=== PATIENT | male | born 1990 | race African-American/Black ===

== ENCOUNTER 2017-09-29 03:38 | Emergency (ER) | payer SELFPAY ==
[~2017-09-29] VITALS: Ht 182.9 cm; Wt 75.0 kg
[2017-09-29 03:41] VITALS: BP 141/89; PULSE 74; RESP 18; TEMP 98.3; O2SAT 100
[2017-09-29] MEDS ORDERED: BACT800T5 PO (05:03)
[2017-09-29] MEDS ORDERED: MEDR4PAK PO (05:03)
[2017-09-29] MEDS ORDERED: FAMO1TAB73 PO (05:03)
[2017-09-29] MEDS ORDERED: CLAR10CA3 PO (05:03)
--- NOTE | 2017-09-29 05:03 | PD ---
HPI Chief Complaint: Edema Time Seen by Provider: 04:57 Travel History International Travel<30 days: No Contact w/Intl Traveler<30days: No Traveled to known affect area: No History of Present Illness HPI About 2 days ago the patient started to notice a small blister that formed on the outside of his bottom lip. Over the following 2 days the swelling increased despite him using antibiotic ointment locally and which maricarmen solution. The swelling continued to increase and increase and finally today he comes in with his bottom lip being almost twice the size of his top lip. Patient denies any shortness of breath. No alleviating or aggravating factors. Patient denies any associated factors such as fever, rash, itching, shortness of breath, stridor or wheezing sounds, chest pain/back pain/neck pain/abdominal pain, cough, throat tightness or nausea vomiting or diarrhea. No known drug allergy Patient denies any significant past medical or surgical history PFSH Past Medical History Medical History: Denies Significant Hx Diminished Hearing: No Tetanus Vaccination: Unknown Influenza Vaccination: No Past Surgical History Surgical History: No Previous Surgery Social History Alcohol Use: No Tobacco Use: No Substance Use: No Allergies-Medications (Allergen,Severity, Reaction): Coded Allergies: No Known Allergies (Unverified Adverse Reaction, Unknown, 10/02/17) Reported Meds & Prescriptions Reported Meds & Active Scripts Active Cleocin (Clindamycin HCl) 150 Mg Cap 300 Mg PO Q6HR Review of Systems General / Constitutional: No: Fever Eyes: No: Visual changes HENT: Positive: Other Cardiovascular: No: Chest Pain or Discomfort Respiratory: No: Shortness of Breath Gastrointestinal: No: Abdominal Pain Genitourinary: No: Dysuria Musculoskeletal: No: Pain Skin: No Rash Neurologic: No: Weakness Psychiatric: No: Depression Endocrine: No: Polydipsia Hematologic/Lymphatic: No: Easy Bruising Physical Exam Narrative GENERAL: SKIN: Warm and dry. HEAD: Atraumatic. Normocephalic. EYES: Pupils equal and round. No scleral icterus. No injection or drainage. ENT: No nasal bleeding or discharge. Mucous membranes pink and moist. No stridor no uvular edema... Inferior lip is edematous and twice the size of the superior lip. No tongue or uvular edema. There is a small punctate lesion that appears to be draining right at the middle of the lip fold, no streaking, NECK: Trachea midline. No JVD. CARDIOVASCULAR: Regular rate and rhythm. RESPIRATORY: No accessory muscle use. Clear to auscultation. Breath sounds equal bilaterally. No wheezing GASTROINTESTINAL: Abdomen soft, non-tender, nondistended. Hepatic and splenic margins not palpable. MUSCULOSKELETAL: Extremities without clubbing, cyanosis, or edema. No obvious deformities. NEUROLOGICAL: Awake and alert. No obvious cranial nerve deficits. Motor grossly within normal limits. Five out of 5 muscle strength in the arms and legs. Normal speech. PSYCHIATRIC: Appropriate mood and affect; insight and judgment normal. Data Data Last Documented VS Orders Orders Iv Access Insert/Monitor (09/29/17 05:05) Diphenhydramine Inj (Benadryl Inj) (09/29/17 05:15) Methylprednisolone So Succ Inj (Solumedr (09/29/17 05:15) Famotidine Inj (Pepcid Inj) (09/29/17 05:15) Sodium Chloride 0.9% Flush (Ns Flush) (09/29/17 05:15) Epinephrine (1:1000) Inj (Adrenalin (1:1 (09/29/17 05:15) Sulfamet-Trimeth Ds 800-160 Mg (Bactrim (09/29/17 05:15) Ed Discharge Order (09/29/17 06:16) MDM Medical Decision Making Medical Screen Exam Complete: Yes Emergency Medical Condition: Yes Medical Record Reviewed: Yes Differential Diagnosis Abscess versus cellulitis versus angioedema versus lymphangitis Narrative Course clinically there aare angioedema changes present, however there is also an associated cellulitc component outside of the lizet border on inferior lip with a small pustule c/w infected insect bite....will tx with antibiotics in addition to angioedema Diagnosis Primary Impression: Angioedema of the inferior lip Additional Impression: Cellulitis of inferior lip Patient Instructions: Angioedema (GEN), Cellulitis (ED), General Instructions Disposition: 01 DISCHARGE HOME Condition: Stable Javid Pérez MD September 29, 2017 05:03
[2017-09-29] MEDS ORDERED: SULFAMETHOXAZOLE-TRIMETHOPRIM DS 800-160 MG TAB PO ONE (05:15)
[2017-09-29] MEDS ORDERED: SODIUM CHLORIDE 0.9% FLUSH 10 ML FLUSH IV FLUSH PRN (05:15)
[2017-09-29] MEDS ORDERED: EPINEPHrine HCL (1:1000) 1 MG/ML VIAL IM ONE (05:15)
[2017-09-29] MEDS ORDERED: FAMOTIDINE 20 MG/2 ML VIAL IV PUSH ONE (05:15)
[2017-09-29] MEDS ORDERED: diphenhydrAMINE HCL 50 MG/ML VIAL IVP ONE (05:15)
[2017-09-29] MEDS ORDERED: methylPREDNISolone SOD SUCC 125 MG/2 ML VIAL IV PUSH ONE (05:15)
[2017-09-29 05:42] VITALS: BP 126/77; PULSE 88
== END 2017-09-29 06:26 | disposition home or self-care (01) ==
LOC: NEPE 03:38
DX: T78.3XXA Angioneurotic edema, initial encounter (principal)
CPT/HCPCS: 96372; 96374; 96375; 99284; J0171; J1200; J2930

== ENCOUNTER 2017-09-30 08:56 | Emergency (ER) | payer SELFPAY ==
[~2017-09-30] VITALS: Ht 182.9 cm; Wt 75.0 kg
[~2017-09-30 08:56] MED LIST: BACT800T5 PO; CLAR10CA3 PO; FAMO1TAB73 PO; MEDR4PAK PO
[2017-09-30 09:03] VITALS: BP 151/77; PULSE 83; RESP 16; TEMP 97.6; O2SAT 99
--- NOTE | 2017-09-30 10:12 | PD ---
HPI Chief Complaint: Facial Pain or Swelling Time Seen by Provider: 10:02 Travel History International Travel<30 days: No Contact w/Intl Traveler<30days: No Traveled to known affect area: No History of Present Illness HPI Patient 27-year-old male presents emergency department with continued swelling of his lower lip, he is actually seen here yesterday for the same. The patient states his been taking all the medications he was prescribed Claritin, Pepcid, Medrol Dosepak and Bactrim. He states he thinks he was bit by something a few days ago which led to the symptoms. States never had in the past. He states it might be slightly worse than it was initially. Denies any fevers denies any discharge denies any difficulty swallowing denies any difficulty breathing peer PFS Past Medical History Medical History: Denies Significant Hx Diminished Hearing: No Past Surgical History Surgical History: No Previous Surgery Social History Alcohol Use: Yes (occ.) Tobacco Use: Yes (black and mild,. occ) Substance Use: No Allergies-Medications (Allergen,Severity, Reaction): Coded Allergies: No Known Allergies (Unverified Adverse Reaction, Unknown, 10/02/17) Reported Meds & Prescriptions Reported Meds & Active Scripts Active Claritin (Loratadine) 10 Mg Cap 10 Mg PO DAILY 10 Days Pepcid (Famotidine) 40 Mg Tab 40 Mg PO DAILY Medrol Dosepak (Methylprednisolone) 4 Mg Dspk 4 Mg PO DIRECTED Per Pharmacist direction Bactrim DS (Sulfamethoxazole-Trimethoprim) 800-160 Mg Tab 1 Tab PO BID Review of Systems Except as stated in HPI: all other systems reviewed are Neg Physical Exam Narrative GENERAL: Well-nourished, well-developed patient. SKIN: Focused skin assessment warm/dry. HEAD: Normocephalic. EYES: No scleral icterus. No injection or drainage. ENT: The lower lip is significantly swollen, probably twice the size of the upper airway is widely patent, there is no soft palate or hard palate swelling no tongue swelling no upper lip swelling, he has a Mallampati 1. He swallows easily without any difficulty. Also there may be a very small ulcerative lesion just to the right of midline, there is no drainage, no surrounding erythema. NECK: Supple, trachea midline. No JVD or lymphadenopathy. CARDIOVASCULAR: Regular rate and rhythm without murmurs, gallops, or rubs. RESPIRATORY: Breath sounds equal bilaterally. No accessory muscle use. GASTROINTESTINAL: Abdomen soft, non-tender, nondistended. MUSCULOSKELETAL: No cyanosis, or edema. BACK: Nontender without obvious deformity. No CVA tenderness. Data Data Last Documented VS Vital Signs Date Time Temp Pulse Resp B/P (MAP) Pulse Ox O2 Delivery O2 Flow Rate FiO2 09/30/17 09:03 97.6 83 16 151/77 (101) 99 Orders Orders Ed Discharge Order (09/30/17 10:12) MDM Medical Decision Making Medical Screen Exam Complete: Yes Emergency Medical Condition: Yes Differential Diagnosis Angioedema, abscess unlikely, erythema, allergic reaction. Narrative Course Patient room to the emergency department, head lengthy discussion with him that if he thinks it is worsening I should observe him in the emergency department for several hours, otherwise I think the angioedema may take several days if not a week or 2 to resolve given its size. He is concerned that the swelling has not improved but not any airway compromise and I do not anticipate any airway compromise in this patient. Nonetheless we reviewed at length the symptoms that would represent airway compromise and that he should call 911 should any of these develop. He verbalized understanding agreement would like to go home without a period of observation. I think this is reasonable. Discussed continue taking his medications as prescribed. Discussed he should not be putting any ointments or chemicals on his lip at this time Diagnosis Primary Impression: Angioedema Qualified Codes: T78.3XXD - Angioneurotic edema, subsequent encounter Disposition: 01 DISCHARGE HOME Condition: Stable Tommy Gilbert MD September 30, 2017 10:12
== END 2017-09-30 10:39 | disposition home or self-care (01) ==
LOC: NEPC 08:56
DX: T78.3XXA Angioneurotic edema, initial encounter (principal); Z72.0 Tobacco use
CPT/HCPCS: 99281

== ENCOUNTER 2017-10-02 15:14 | Inpatient (IN) | payer SELFPAY ==
[2017-10-02 15:25] VITALS: BP 129/74; PULSE 112; RESP 18; TEMP 98.8; O2SAT 98
[2017-10-02] MEDS ORDERED: LIDOCAINE HCL 1% PF 30 ML VIAL ONE (16:05)
[2017-10-02] MEDS ORDERED: LIDOCAINE HCL 1% 50 ML VIAL INFIL ONE (16:15)
[2017-10-02] MEDS ORDERED: VANCOMYCIN INJ 1,000 MG in SODIUM CHLOR 0.9% 250 ML INJ 250 ML IV ONE (16:15)
[2017-10-02] MEDS ORDERED: SODIUM CHLOR 0.9% 1000 ML INJ 1,000 ML IV ONE (16:15)
--- NOTE | 2017-10-02 16:28 | PD ---
HPI Chief Complaint: Bite or Sting Time Seen by Provider: 15:57 Travel History International Travel<30 days: No Contact w/Intl Traveler<30days: No Traveled to known affect area: No History of Present Illness HPI 27-year-old male presents to the emergency department for abscess of his lower lip. Patient was seen on September 29 and September 30 for the same. He was started on Bactrim on September 29. He was seen again the next day was instructed to continue his medications. Patient states that it has continued to worsen. He does report some drainage to the lower lip. No fevers or chills. He has no chronic medical problems and takes no prescribed medications. Current pain is 7/10, without radiation. No exacerbating or alleviating factors. Moderate severity. PFSH Past Medical History Diminished Hearing: No Social History Alcohol Use: Yes (occ.) Tobacco Use: Yes (black and mild,. occ) Substance Use: No Allergies-Medications (Allergen,Severity, Reaction): Coded Allergies: No Known Allergies (Unverified Adverse Reaction, Unknown, 10/02/17) Reported Meds & Prescriptions Reported Meds & Active Scripts Active No Active Prescriptions or Reported Medications Review of Systems Except as stated in HPI: all other systems reviewed are Neg Physical Exam Narrative GENERAL: Well-nourished, well-developed male patient, afebrile. SKIN: Focused skin assessment warm/dry. Patient's lower lip is significantly swollen. He does have an area of drainage to the mid aspect of the lip. Purulent drainage is noted. HEAD: Normocephalic. Atraumatic. EYES: No scleral icterus. No injection or drainage. NECK: Supple, trachea midline. No JVD or lymphadenopathy. CARDIOVASCULAR: Regular rhythm without murmurs, gallops, or rubs. Patient is slightly tachycardic RESPIRATORY: Breath sounds equal bilaterally. No accessory muscle use. Lung sounds are clear to auscultation. GASTROINTESTINAL: Abdomen soft, non-tender, nondistended. MUSCULOSKELETAL: No cyanosis, or edema. BACK: Nontender without obvious deformity. No CVA tenderness. Data Data Last Documented VS Vital Signs Date Time Temp Pulse Resp B/P (MAP) Pulse Ox O2 Delivery O2 Flow Rate FiO2 10/02/17 15:25 98.8 112 18 129/74 (92) 98 Orders Orders Complete Blood Count With Diff (10/02/17 16:01) Basic Metabolic Panel (Bmp) (10/02/17 16:01) Sodium Chlor 0.9% 1000 Ml Inj (Ns 1000 M (10/02/17 16:15) Blood Culture (10/02/17 16:01) Vancomycin Inj (Vancomycin Inj) (10/02/17 16:15) Wound Culture And Gram Stain (10/02/17 16:01) Lidocaine 1% Inj (50 Ml) (Xylocaine 1% I (10/02/17 16:15) Lidocaine Pf 1% Inj (Xylocaine-Mpf 1% In (10/02/17 16:05) Lactic Acid Sepsis Protocol (10/02/17 16:22) Acetamin-Hydrocod 325-5 Mg ([place] 5-325 (10/02/17 16:30) Labs Laboratory Tests Test 10/02/17 16:00 10/02/17 16:40 Lactic Acid Level 0.9 mmol/L White Blood Count 13.7 TH/MM3 Red Blood Count 6.40 MIL/MM3 Hemoglobin 16.9 GM/DL Hematocrit 50.7 % Mean Corpuscular Volume 79.2 FL Mean Corpuscular Hemoglobin 26.3 PG Mean Corpuscular Hemoglobin Concent 33.3 % Red Cell Distribution Width 14.1 % Platelet Count 216 TH/MM3 Mean Platelet Volume 10.4 FL Neutrophils (%) (Auto) 74.7 % Lymphocytes (%) (Auto) 15.2 % Monocytes (%) (Auto) 9.6 % Eosinophils (%) (Auto) 0.2 % Basophils (%) (Auto) 0.3 % Neutrophils # (Auto) 10.2 TH/MM3 Lymphocytes # (Auto) 2.1 TH/MM3 Monocytes # (Auto) 1.3 TH/MM3 Eosinophils # (Auto) 0.0 TH/MM3 Basophils # (Auto) 0.0 TH/MM3 CBC Comment DIFF FINAL Differential Comment Blood Urea Nitrogen 17 MG/DL Creatinine 1.00 MG/DL Random Glucose 94 MG/DL Calcium Level 8.9 MG/DL Sodium Level 136 MEQ/L Potassium Level 3.9 MEQ/L Chloride Level 99 MEQ/L Carbon Dioxide Level 23.8 MEQ/L Anion Gap 13 MEQ/L Estimat Glomerular Filtration Rate 109 ML/MIN MDM Medical Decision Making Medical Screen Exam Complete: Yes Emergency Medical Condition: Yes Medical Record Reviewed: Yes Differential Diagnosis Abscess versus cellulitis versus sepsis Narrative Course 27-year-old male presents to the emergency department for reevaluation of lower lip swelling. He is currently on Bactrim and states symptoms are worsening. He does have some drainage noted to the lip. He gives verbal consent for incision and drainage. Incision and drainage is completed. Purulent drainage was expressed, but the lip still remains significantly swollen with induration. IV access is obtained. CBC, BMP, lactic acid, blood cultures 2 were ordered and pending. Patient is given vancomycin 1 g IV. CBC shows leukocytosis 13.7. BMP is unremarkable. Lactic acid is 0.9 My attending physician, Dr. Batista, also examined patient and agrees with admission. [facility] p[facility] for [facility]. Procedures Procedure Narrative INCISION AND DRAINAGE OF ABSCESS: The area was prepped and was sterilely draped. A subcutaneous wheal of 1% Xylocaine with a total number 3 mL was used to anesthetize the area. The area was properly anesthetized. A number 11 scalpel was used to make a 0.5-cm incision across the area of the abscess. Cultures were obtained. The abscess was drained an irrigated with normal saline. Sterile dressing applied. Sepsis Criteria SIRS Criteria (2 or more): Heart rate over 90, WBC > 77980, < 4000 or > 10% bands Sepsis Criteria (SIRS+source): Infect source susp/known Diagnosis Primary Impression: Lip abscess Additional Impression: Sepsis Qualified Codes: A41.9 - Sepsis, unspecified organism Admitting Information Admitting Physician Requests: Admit Scripts No Active Prescriptions or Reported Verónica Lovett October 02, 2017 16:28
[2017-10-02] MEDS ORDERED: ACETAMINOPHEN/HYDROcodone 325 MG/5 MG TAB PO ONE (16:30)
[2017-10-02 17:24] LABS: AUTOMATED NEUTROPHIL # 10.2 TH/MM3 (1.8-7.7); BASOPHIL % 0.3 % (0.0-2.0); EOSINOPHIL % 0.2 % (0.0-4.0); HEMATOCRIT 50.7 % (39.0-51.0); HEMOGLOBIN 16.9 GM/DL (13.0-17.0); LYMPH % 15.2 % (9.0-44.0); LYMPHOCYTE # 2.1 TH/MM3 (1.0-4.8); MEAN CELL VOLUME 79.2 FL (80.0-100.0); MEAN CORPUSCULAR HEMOGLOBIN 26.3 PG (27.0-34.0); MEAN CORPUSCULAR HGB CONC 33.3 % (32.0-36.0); MEAN PLATELET VOLUME 10.4 FL (7.0-11.0); MONO % 9.6 % (0.0-8.0); MONOCYTE # 1.3 TH/MM3 (0-0.9); NEUT % 74.7 % (16.0-70.0); PLATELET COUNT 216 TH/MM3 (150-450); RED CELL DISTRIBUTION WIDTH 14.1 % (11.6-17.2); WHITE BLOOD COUNT 13.7 TH/MM3 (4.0-11.0)
[2017-10-02 18:17] LABS: BICARBONATE 23.8 MEQ/L (21.0-32.0); CALCIUM 8.9 MG/DL (8.5-10.1)
--- NOTE | 2017-10-02 19:06 | PD ---
Physical Exam Narrative I, Dr. Batista, have reviewed the advance practice practitioner's documentation and am in agreement, met with the patient face to face, made the diagnosis, and the medical decision making was done by me. *My assessment and Findings: Lip abscess vs. sepsis 27yo M with no PMH presents to the ED with worsening lower lip swelling and pain for 4 days. Pt was evaluated here on 09/29 and 09/30/17 and has been taking bactrim but it is not helping. There is purulent discharge from the lower lip. I&D was attempted by my [employer] ENG[employer] but was not able to express much purulent discharge. Lower lip is markedly edematous and there is induration throughout. Uvula midline with no edema. No tongue swelling or elevation or tongue. Pt is mildly tachycardic at 112bpm and has leukocytosis at 13.7. Lactic acid is normal. BMP unremarkable. Pt given vancomycin, NS IVF and lortab. Pt has been compliant with bactrim and symptoms are worsening. Pt meets sepsis criteria, will admit and consult plastics. Data Data Last Documented VS Vital Signs Date Time Temp Pulse Resp B/P (MAP) Pulse Ox O2 Delivery O2 Flow Rate FiO2 10/02/17 15:25 98.8 112 18 129/74 (92) 98 Orders Orders Complete Blood Count With Diff (10/02/17 16:01) Basic Metabolic Panel (Bmp) (10/02/17 16:01) Sodium Chlor 0.9% 1000 Ml Inj (Ns 1000 M (10/02/17 16:15) Blood Culture (10/02/17 16:01) Vancomycin Inj (Vancomycin Inj) (10/02/17 16:15) Wound Culture And Gram Stain (10/02/17 16:01) Lidocaine 1% Inj (50 Ml) (Xylocaine 1% I (10/02/17 16:15) Lidocaine Pf 1% Inj (Xylocaine-Mpf 1% In (10/02/17 16:05) Lactic Acid Sepsis Protocol (10/02/17 16:22) Acetamin-Hydrocod 325-5 Mg ([place] 5-325 (10/02/17 16:30) Admit Order (Ed Use Only) (10/02/17 19:19) Labs Laboratory Tests Test 10/02/17 16:00 10/02/17 16:40 Lactic Acid Level 0.9 mmol/L White Blood Count 13.7 TH/MM3 Red Blood Count 6.40 MIL/MM3 Hemoglobin 16.9 GM/DL Hematocrit 50.7 % Mean Corpuscular Volume 79.2 FL Mean Corpuscular Hemoglobin 26.3 PG Mean Corpuscular Hemoglobin Concent 33.3 % Red Cell Distribution Width 14.1 % Platelet Count 216 TH/MM3 Mean Platelet Volume 10.4 FL Neutrophils (%) (Auto) 74.7 % Lymphocytes (%) (Auto) 15.2 % Monocytes (%) (Auto) 9.6 % Eosinophils (%) (Auto) 0.2 % Basophils (%) (Auto) 0.3 % Neutrophils # (Auto) 10.2 TH/MM3 Lymphocytes # (Auto) 2.1 TH/MM3 Monocytes # (Auto) 1.3 TH/MM3 Eosinophils # (Auto) 0.0 TH/MM3 Basophils # (Auto) 0.0 TH/MM3 CBC Comment DIFF FINAL Differential Comment Blood Urea Nitrogen 17 MG/DL Creatinine 1.00 MG/DL Random Glucose 94 MG/DL Calcium Level 8.9 MG/DL Sodium Level 136 MEQ/L Potassium Level 3.9 MEQ/L Chloride Level 99 MEQ/L Carbon Dioxide Level 23.8 MEQ/L Anion Gap 13 MEQ/L Estimat Glomerular Filtration Rate 109 ML/MIN MDM Supervised Visit with ARIANE: Yes Diagnosis Primary Impression: Lip abscess Additional Impression: Sepsis Qualified Codes: A41.9 - Sepsis, unspecified organism Scripts No Active Prescriptions or Reported Meds Christiane Batista DO October 02, 2017 19:06
[2017-10-02] MEDS ORDERED: NALOXONE HCL 0.4 MG/ML AMP IV PUSH PRN (19:45)
[2017-10-02] MEDS ORDERED: BISACODYL 10 MG SUPP RECTAL PRN (19:45)
[2017-10-02] MEDS ORDERED: ACETAMINOPHEN/HYDROcodone 325 MG/5 MG TAB PO PRN (19:45)
[2017-10-02] MEDS ORDERED: SENNOSIDES 8.6 MG TAB PO PRN (19:45)
[2017-10-02] MEDS ORDERED: LACTULOSE SYRUP 20 GM/30 ML CUP PO PRN (19:45)
[2017-10-02] MEDS ORDERED: Vancomycin Consult Pharmacy 1 EA OTHER SCH (19:45)
[2017-10-02] MEDS ORDERED: MAGNESIUM HYDROXIDE SUSP 30 ML CUP PO PRN (19:45)
[2017-10-02] MEDS ORDERED: SODIUM CHLORIDE 0.9% FLUSH 10 ML FLUSH IV FLUSH PRN (19:45)
[2017-10-02] MEDS ORDERED: ACETAMINOPHEN 325 MG TAB PO PRN (19:45)
[2017-10-02 20:00] VITALS: BP 127/86; PULSE 80; RESP 20; TEMP 98.5; O2SAT 99
[2017-10-02] MEDS ORDERED: MORPHINE SULFATE 4 MG/ML INJ IV PRN (20:00)
[2017-10-02] MEDS: SODIUM CHLOR 0.9% 1000 ML INJ 1,000 ML IV SCH (20:07)
--- NOTE | 2017-10-02 20:45 | HHI.HP ---
HPI Service [facility] Primary Care Physician No Primary Care Physician Admission Diagnosis Sepsis secondary to lip abscess Diagnoses: Travel History International Travel<30 Days: No Contact w/Intl Traveler <30 Da: No Traveled to Known Affected Are: No History of Present Illness 27-year-old male with no significant past medical history presents the emergency department for the evaluation of a swollen lower lip. The patient reports that he thinks he was bit by a spider approximately 4 days ago. He states that the swelling began at that time and has continued to worsen. He was seen in the emergency department on 527 and 528 for the same symptoms. He was started on Bactrim on 09/29 with which he was compliant and despite this his lip swelling continued to worsen. Yesterday the area opened up and started draining foul-smelling purulent material. The patient endorses fatigue. Denies any fever/chills. No chest pain or shortness of breath. No abdominal pain. No nausea/vomiting/diarrhea. No lateralizing signs/symptoms. Review of Systems Except as stated in HPI: all other systems reviewed are Neg Past Family Social History Past Medical History None Past Surgical History None Reported Medications Reported Meds & Active Scripts Active No Active Prescriptions or Reported Medications Allergies: Coded Allergies: No Known Allergies (Unverified Adverse Reaction, Unknown, 10/02/17) Family History Maternal grandmother with diabetes mellitus Social History Occasional tobacco. Occasional alcohol. Denies illicit drugs. Physical Exam Vital Signs Vital Signs Date Time Temp Pulse Resp B/P (MAP) Pulse Ox O2 Delivery O2 Flow Rate FiO2 10/02/17 15:25 98.8 112 18 129/74 (92) 98 Physical Exam GENERAL: -[place] male sitting up in bed SKIN: No rashes, ecchymoses or lesions. Cool and dry. HEAD: Atraumatic. Normocephalic. No temporal or scalp tenderness. EYES: Pupils equal round and reactive. Extraocular motions intact. No scleral icterus. No injection or drainage. ENT: Nose without bleeding, purulent drainage or septal hematoma. Throat without erythema, tonsillar hypertrophy or exudate. Uvula midline. Airway patent. Lower lip significantly swollen with 1 cm open area draining small amount of purulent material. NECK: Trachea midline. No JVD or lymphadenopathy. Supple, nontender, no meningeal signs. CARDIOVASCULAR: Regular rate and rhythm without murmurs, gallops, or rubs. RESPIRATORY: Clear to auscultation. Breath sounds equal bilaterally. No wheezes , rales, or rhonchi. GASTROINTESTINAL: Abdomen soft, non-tender, nondistended. No hepato-splenomegaly , or palpable masses. No guarding. MUSCULOSKELETAL: Extremities without clubbing, cyanosis, or edema. No joint tenderness, effusion, or edema noted. No calf tenderness. NEUROLOGICAL: Awake and alert. Cranial nerves II through XII intact. Motor and sensory grossly within normal limits. Normal speech. Laboratory Laboratory Tests Test 10/02/17 16:00 10/02/17 16:40 Lactic Acid Level 0.9 White Blood Count 13.7 Red Blood Count 6.40 Hemoglobin 16.9 Hematocrit 50.7 Mean Corpuscular Volume 79.2 Mean Corpuscular Hemoglobin 26.3 Mean Corpuscular Hemoglobin Concent 33.3 Red Cell Distribution Width 14.1 Platelet Count 216 Mean Platelet Volume 10.4 Neutrophils (%) (Auto) 74.7 Lymphocytes (%) (Auto) 15.2 Monocytes (%) (Auto) 9.6 Eosinophils (%) (Auto) 0.2 Basophils (%) (Auto) 0.3 Neutrophils # (Auto) 10.2 Lymphocytes # (Auto) 2.1 Monocytes # (Auto) 1.3 Eosinophils # (Auto) 0.0 Basophils # (Auto) 0.0 CBC Comment DIFF FINAL Differential Comment Blood Urea Nitrogen 17 Creatinine 1.00 Random Glucose 94 Calcium Level 8.9 Sodium Level 136 Potassium Level 3.9 Chloride Level 99 Carbon Dioxide Level 23.8 Anion Gap 13 Estimat Glomerular Filtration Rate 109 Date/Time Source Procedure Growth Status 10/02/17 16:55 Blood Peripheral Aerobic Blood Culture Pending Received 10/02/17 16:55 Blood Peripheral Anaerobic Blood Culture Pending Received 10/02/17 16:40 Wound Face Gram Stain Pending Received 10/02/17 16:40 Wound Face Wound Culture Pending Received Result Diagram: 10/02/17 1640 10/02/17 1640 Caprini VTE Risk Assessment Caprini VTE Risk Assessment: No/Low Risk (score <= 1) Caprini Risk Assessment Model Point Value = 1 Point Value = 2 Point Value = 3 Point Value = 5 Age 41-60 Minor surgery BMI > 25 kg/m2 Swollen legs Varicose veins or History of unexplained or recurrent spontaneous Oral contraceptives or hormone replacement Sepsis (< 1 month) Serious lung disease, including pneumonia (< 1 month) Abnormal pulmonary function Acute myocardial infarction Congestive heart failure (< 1 month) History of inflammatory bowel disease Medical patient at bed rest Age 61-74 Arthroscopic surgery Major open surgery (> 45 min) Laparoscopic surgery (> 45 min) Malignancy Confined to bed (> 72 hours) Immobilizing plaster cast Central venous access Age >= 75 History of VTE Family history of VTE Factor V Leiden Prothrombin [id number] Lupus anticoagulant Anticardiolipin antibodies Elevated serum homocysteine Heparin-induced thrombocytopenia Other congenital or acquired thrombophilia Stroke (< 1 month) Elective arthroplasty Hip, pelvis, or leg fracture Acute spinal cord injury (< 1 month) Prophylaxis Regimen Total Risk Factor Score Risk Level Prophylaxis Regimen 0-1 Low Early ambulation 2 Moderate Order ONE of the following: *Sequential Compression Device (SCD) *Heparin 5000 units SQ BID 3-4 Higher Order ONE of the following medications: *Heparin 5000 units SQ TID *Enoxaparin/Lovenox 40 mg SQ daily (WT < 150 kg, CrCl > 30 mL/min) *Enoxaparin/Lovenox 30 mg SQ daily (WT < 150 kg, CrCl > 10-29 mL/min) *Enoxaparin/Lovenox 30 mg SQ BID (WT < 150 kg, CrCl > 30 mL/min) AND/OR *Sequential Compression Device (SCD) 5 or more Highest Order ONE of the following medications: *Heparin 5000 units SQ TID (Preferred with Epidurals) *Enoxaparin/Lovenox 40 mg SQ daily (WT < 150 kg, CrCl > 30 mL/min) *Enoxaparin/Lovenox 30 mg SQ daily (WT < 150 kg, CrCl > 10-29 mL/min) *Enoxaparin/Lovenox 30 mg SQ BID (WT < 150 kg, CrCl > 30 mL/min) AND *Sequential Compression Device (SCD) Assessment and Plan Assessment and Plan Assessment/plan: 1. Lower lip abscess I&D attempted in the emergency department however concern for loculated abscess Plastic surgery consulted, appreciate assistance Vancomycin/Zosyn Wound culture pending Blood cultures pending FEN N.p.o. Electrolytes: Monitor and replete as needed NS at 100 cc/hour Physician Certification 2 Midnight Certification Type: Admission for Inpatient Services Order for Inpatient Services The services are ordered in accordance with Medicare regulations or non- Medicare payer requirements, as applicable. In the case of services not specified as inpatient-only, they are appropriately provided as inpatient services in accordance with the 2-midnight benchmark. Estimated LOS (days): 2 2 days is the estimated time the patient will need to remain in the hospital, assuming treatment plan goals are met and no additional complications. Post-Hospital Plan: Not yet determined Kathy Martin MD October 02, 2017 20:45
[2017-10-02] MEDS: PIPERACIL-TAZO 3.375 GM PREMIX 50 ML IV SCH (22:40)
[2017-10-02] MEDS: SODIUM CHLORIDE 0.9% FLUSH 10 ML FLUSH IV FLUSH SCH (22:41)
[2017-10-02] MEDS: VANCOMYCIN 1,000 MG/NS 250 ML IV SCH ×2 (22:47)
[2017-10-03] VITALS: BP 120/74; PULSE 77; RESP 18; TEMP 97.9; O2SAT 98
[2017-10-03] MEDS: PIPERACIL-TAZO 3.375 GM PREMIX 50 ML IV SCH ×4 (03:32→22:58)
[2017-10-03] MEDS: SODIUM CHLOR 0.9% 1000 ML INJ 1,000 ML IV SCH ×2 (05:06→16:30)
[2017-10-03 06:01] LABS: AUTOMATED NEUTROPHIL # 3.5 TH/MM3 (1.8-7.7); BASOPHIL % 0.5 % (0.0-2.0); EOSINOPHIL # 0.1 TH/MM3 (0-0.4); EOSINOPHIL % 1.3 % (0.0-4.0); HEMOGLOBIN 14.9 GM/DL (13.0-17.0); LYMPH % 32.7 % (9.0-44.0); LYMPHOCYTE # 2.1 TH/MM3 (1.0-4.8); MEAN CELL VOLUME 80.5 FL (80.0-100.0); MEAN CORPUSCULAR HEMOGLOBIN 26.7 PG (27.0-34.0); MEAN CORPUSCULAR HGB CONC 33.2 % (32.0-36.0); MEAN PLATELET VOLUME 10.6 FL (7.0-11.0); MONO % 12.3 % (0.0-8.0); MONOCYTE # 0.8 TH/MM3 (0-0.9); NEUT % 53.2 % (16.0-70.0); PLATELET COUNT 185 TH/MM3 (150-450); RED BLOOD COUNT 5.59 MIL/MM3 (4.50-5.90); RED CELL DISTRIBUTION WIDTH 14.2 % (11.6-17.2); WHITE BLOOD COUNT 6.6 TH/MM3 (4.0-11.0)
[2017-10-03 06:18] LABS: BICARBONATE 24.1 MEQ/L (21.0-32.0); CALCIUM 8.2 MG/DL (8.5-10.1); CREATININE 0.98 MG/DL (0.60-1.30)
[2017-10-03 08:00] VITALS: BP 122/66; PULSE 69; RESP 17; TEMP 98; O2SAT 97
[2017-10-03] MEDS: VANCOMYCIN 1,000 MG/NS 250 ML IV SCH ×4 (08:02→17:56)
[2017-10-03] MEDS: SODIUM CHLORIDE 0.9% FLUSH 10 ML FLUSH IV FLUSH SCH ×2 (08:03→21:00)
[2017-10-03 12:00] VITALS: BP 124/64; PULSE 66; RESP 18; TEMP 97.9; O2SAT 99
[2017-10-03 16:00] VITALS: BP 129/65; PULSE 62; RESP 17; TEMP 97.9; O2SAT 99
--- NOTE | 2017-10-03 16:40 | HHI.PR ---
Addendum to Inpatient Note Addendum Reason: Additional Documentation Additional Information Patient complains of some pain in the lower lip which is swollen. Patient is awake alert and oriented 3 denies fevers, states has had some chills. I will order a CT of the soft tissue of the face to assess the possibility of an abscess. Discussed the case with Dr. Briceno from maxillofacial surgery who recommends ID consultation. Wound culture is growing MRSA. Continue IV vancomycin I will discontinue IV cefepime. Follow-up ID and sensitivities. Gopi Martins MD October 03, 2017 16:40
--- NOTE | 2017-10-03 16:44 | HHI.PR ---
Subjective Remarks Patient complains of swelling on the lower lip as well as pain. Pain seems to be better controlled. Denies fevers or chills. BP stable, tachycardia resolved. Objective Vitals Vital Signs Date Time Temp Pulse Resp B/P (MAP) Pulse Ox O2 Delivery O2 Flow Rate FiO2 10/03/17 16:00 97.9 62 17 129/65 (86) 99 10/03/17 12:00 97.9 66 18 124/64 (84) 99 10/03/17 08:00 98.0 69 17 122/66 (84) 97 10/03/17 00:00 97.9 77 18 120/74 (89) 98 10/02/17 20:00 98.5 80 20 127/86 (100) 99 I/O 10/02/17 10/02/17 10/02/17 10/03/17 10/03/17 10/03/17 07:00 15:00 23:00 07:00 15:00 23:00 Intake Total 1440 ml Output Total 0 ml Balance 1440 ml Intake Oral 240 ml IV Total 1200 ml Output Urine Total 0 ml Stool Total 0 ml # Voids 0 # Bowel Movements 0 Result Diagram: 10/03/17 0500 10/03/17 0500 Objective Remarks AAOx3 Swollen loer lip, no drainage observed. Clear lungs BL Abdomen soft, nt no edema in extremities Medications and IVs Current Medications Medications (Trade) Dose Ordered Sig/Leah Route Start Time Stop Time Status Last Admin Sodium Chloride 1,000 ml @ 100 mls/hr Q10H IV 10/02/17 20:00 10/03/17 16:30 (NS Flush) 2 ml UNSCH PRN IV FLUSH 10/02/17 19:45 (NS Flush) 2 ml BID IV FLUSH 10/02/17 21:00 10/02/17 22:41 (Tylenol) 650 mg Q4H PRN PO 10/02/17 19:45 (Narcan Inj) 0.4 mg UNSCH PRN IV PUSH 10/02/17 19:45 (Milk Of Magnesia Liq) 30 ml Q12H PRN PO 10/02/17 19:45 (Senokot) 17.2 mg Q12H PRN PO 10/02/17 19:45 (Dulcolax Supp) 10 mg DAILY PRN RECTAL 10/02/17 19:45 (Lactulose Liq) 30 ml DAILY PRN PO 10/02/17 19:45 ([place] 5-325 Mg) 1 tab Q4H PRN PO 10/02/17 19:45 (Morphine Inj) 2 mg Q3H PRN IV 10/02/17 20:00 Pharmacy Profile Note 0 ml @ 0 mls/hr UNSCH OTHER 10/02/17 19:45 Vancomycin HCl 1000 mg/Sodium Chloride 250 ml @ 250 mls/hr Q8H IV 10/03/17 00:00 10/03/17 08:02 ([facility] [place] [facility] Ordered Lab Info) SPECIFIC LAB TO BE PILY... ONCE ONCE .XX 10/03/17 23:45 10/03/17 23:46 Piperacillin Sod/ Tazobactam Sod 50 ml @ 100 mls/hr Q6H IV 10/02/17 21:00 10/03/17 16:01 A/P Problem List: (1) Sepsis ICD Code: A41.9 - Sepsis, unspecified organism Status: Acute (2) Lip abscess ICD Code: K13.0 - Diseases of lips Status: Acute Assessment and Plan Sepsis present on admission patient with cytosis and heart rate more than 90. Source is the lip. Wound culture growing MRSA. DC IV cefepime, continue IV vancomycin. Discussed case with maxillofacial surgery. Dr. Briceno recommends ID consultation if needed. Continue pain control with oral [place]. SCDs for DVT prophylaxis. Discharge Planning DC pending clinical improvement. DC also pending sensitivities. Problem Qualifiers (1) Sepsis: Qualified Codes: A41.9 - Sepsis, unspecified organism Gopi Martins MD October 03, 2017 16:44
--- NOTE | 2017-10-03 16:50 | MB ---
cc: Naveen Briceno DMD Naveen Briceno DMD DATE: 10/03/2017 REASON FOR CONSULTATION: Lip abscess. HISTORY OF PRESENT ILLNESS: I have seen and examined this pleasant 27-year-old male this evening. He is alert, awake and oriented x3, in no acute distress. He reports that he believes that he got bitten possibly by a spider 4 days ago; however, he felt like a pimple kind of thing and he popped it. Then, he came into the ED several days ago and sent him on p.o. antibiotics, but he felt the swelling began to get worse, so that is the reason he came back to the ER. I have seen and examined this patient this afternoon. He reports that he is getting much better since he was admitted with the antibiotics. No pain. Denies any fever, chills, nausea, vomiting, any shortness of breath and difficulty breathing or any difficulty swallowing. PAST MEDICAL HISTORY: Denied. MEDICATIONS: Denied. ALLERGIES: DENIED. SOCIAL HISTORY: Occasional tobacco, alcohol, but denies any illicit drugs. PHYSICAL EXAMINATION: VITAL SIGNS: Temperature 97.9, pulse 66, respirations 18, blood pressure is 124/64 with oxygen saturation of 99%. Lower lip edema that is noted. It is soft. There is no drainable abscess collection that I can palpate with my finger. On the dorsum on the top part of the lip, I can see the area where they made a previous incision and drainage and it comes down to the level of the vermilion border, below the vermilion border. It is clean. It is dry. There is no drainage that is noted. I took a culture tube to see if they can get any drainage out of it, anything and there is nothing. It is dry. The patient has no tenderness to palpation at this point. There is no neck edema. The lower lip at this point looks stable. LABORATORY DATA: White count is 6.6 today, down from 13.7 yesterday status post the I and D in the ED. H&H is 14.9 and 45.0 with platelets of 185. The microbiology came back as MRSA so therefore he has MRSA. ASSESSMENT AND PLAN: This is a 27-year-old male status post popping what I believe to be a pimple, questionable insect bite on his lower lip and then currently lip swelled up. Now status post I and D. He reports he is much better. The culture done came back as Staph aureus methicillin resistant staph aureus. At this point, there is no surgical intervention needed from oral maxillofacial surgery standpoint, as there is no collection that I can see or any surgical intervention needed. Continue the antibiotics and consult Infectious Disease. . JAHAIRA Dickson/ , 04:27 PM , 04:50 PM
[2017-10-03] MEDS ORDERED: IOHEXOL 350 MG/ML 10 ML VIAL (for RAD DIAG) IVCONTRAST ONE (17:57)
--- NOTE | 2017-10-03 18:14 | RADRPT ---
EXAM DATE: 10/03/2017 5:59 PM EDT AGE/SEX: 27 years / Male INDICATIONS: Lower lip swelling. Evaluate for abscess. CLINICAL DATA: This is the patient's initial encounter. Patient reports that signs and symptoms have been present for 4 - 6 days and indicates a pain score of 0/10. MEDICAL/SURGICAL HISTORY: None. None. RADIATION DOSE: 51.97 CTDI (mGy) COMPARISON: . TECHNIQUE: Contiguous images in the axial and coronal planes were obtained using helical multirow de tector technique with 65 ml Omnipaque 350 (iohexol) nonionic water-soluble contrast as a single exam dose. Using automated exposure control and adjustment of the mA and/or kV according to patient size , radiation dose was kept as low as reasonably achievable to obtain optimal diagnostic quality images . FINDINGS: Orbits: The orbital and infraorbital osseous structures are intact. The retroconal structures have a normal configuration. No radiopaque foreign bodies are seen. Nasal Bone: The nasal bone and maxillary spine are intact. Zygomatic Arches: Symmetric without evidence of fracture. Sinuses: The maxillary, ethmoid and frontal sinuses are intact. No air-fluid levels seen. Nasal Cavity: The nasal septum is intact and midline. The lacrimal ducts are intact. Soft Tissues: No radiopaque foreign bodies seen. No soft-tissue swelling is seen. Intracranial: No intracranial air seen. Cribriform Plate: Grossly intact. Post Contrast: No abnormal areas of enhancement seen. CONCLUSION: 1. Unremarkable exam. In particular, no abscess involving the lower lip. Electronically signed by: Sagar Lehman MD 10/03/2017 6:13 PM EDT
[2017-10-03 20:00] VITALS: BP 131/75; PULSE 65; RESP 20; TEMP 97.6; O2SAT 99
[2017-10-03] MEDS ORDERED: PHARMACY ORDERED LAB ONE (23:45)
[2017-10-04] VITALS: BP 140/88; PULSE 57; RESP 20; TEMP 97.3; O2SAT 99
[2017-10-04] MEDS: VANCOMYCIN 1,000 MG/NS 250 ML IV SCH ×2 (00:23)
[2017-10-04] MEDS: SODIUM CHLOR 0.9% 1000 ML INJ 1,000 ML IV SCH ×2 (04:26→11:53)
[2017-10-04] MEDS: PIPERACIL-TAZO 3.375 GM PREMIX 50 ML IV SCH ×2 (04:26→08:47)
[2017-10-04] MEDS ORDERED: VANCOMYCIN INJ 1,250 MG in SODIUM CHLOR 0.9% 250 ML INJ 250 ML IV SCH (06:00)
[2017-10-04 07:11] LABS: CREATININE 0.82 MG/DL (0.60-1.30)
[2017-10-04 08:00] VITALS: BP 130/80; PULSE 66; RESP 20; TEMP 97.9; O2SAT 98
[2017-10-04] MEDS: SODIUM CHLORIDE 0.9% FLUSH 10 ML FLUSH IV FLUSH SCH (08:48)
--- NOTE | 2017-10-04 09:41 | PD.CONS ---
History of Present Illness Service Infectious disease Consult Requested By Dr Briceno Reason for Consult Evaluate patient with lip edema Primary Care Physician No Primary Care Physician Diagnoses: History of Present Illness Patient seen and examined. Records reviewed. Patient is a 27-year-old male, with no significant past medical history, initially presented to the emergency room September 29 complaining of swelling on his lip. He thought he might have had a spider bite on his lower lip. Patient was treated for angioedema, and he was given Claritin, Zantac, Medrol Dosepak, as well as Bactrim for some suggestion of cellulitis. He returned September 30 because he was not improving and stated that he was compliant with his medication. There was no change in his treatment, and he was told to discontinue all his medication. On the day of admission he had noticed that there was an area that started opening up, so he went back to the hospital and admitted October 02. An I& D on the lower lip was done. Patient has not been febrile. He had shown significant improvement in the swelling. Denies any shortness of breath or any swallowing difficulty. His WBC has improved. Culture is reported as growing MRSA. Infectious disease consultation has been requested to evaluate the patient. Review of Systems Constitutional: DENIES: Fever, Chills, Night Sweats Eyes: DENIES: Eye pain Ears, nose, mouth, throat: DENIES: Nasal discharge, Throat pain, Hoarseness, Ear Pain, Sinus Pain, Odynophagia Respiratory: DENIES: Cough, Shortness of breath Cardiovascular: DENIES: Chest pain, Palpitations, Syncope Gastrointestinal: DENIES: Abdominal pain, Diarrhea, Nausea, Vomiting Genitourinary: DENIES: Dysuria Musculoskeletal: DENIES: Joint pain, Muscle aches, Joint Swelling Integumentary: DENIES: Rash Immunologic/allergic: DENIES: Urticaria Neurologic: DENIES: Headache Psychiatric: DENIES: Hallucinations Past Family Social History Allergies: Coded Allergies: No Known Allergies (Unverified Adverse Reaction, Unknown, 10/02/17) Past Medical History Unremarkable Past Surgical History Unremarkable Active Ordered Medications Current Medications Medications (Trade) Dose Ordered Sig/Leah Route Start Time Stop Time Status Last Admin Sodium Chloride 1,000 ml @ 100 mls/hr Q10H IV 10/02/17 20:00 10/04/17 04:26 (NS Flush) 2 ml UNSCH PRN IV FLUSH 10/02/17 19:45 (NS Flush) 2 ml BID IV FLUSH 10/02/17 21:00 10/02/17 22:41 (Tylenol) 650 mg Q4H PRN PO 10/02/17 19:45 (Narcan Inj) 0.4 mg UNSCH PRN IV PUSH 10/02/17 19:45 (Milk Of Magnesia Liq) 30 ml Q12H PRN PO 10/02/17 19:45 (Senokot) 17.2 mg Q12H PRN PO 10/02/17 19:45 (Dulcolax Supp) 10 mg DAILY PRN RECTAL 10/02/17 19:45 (Lactulose Liq) 30 ml DAILY PRN PO 10/02/17 19:45 ([place] 5-325 Mg) 1 tab Q4H PRN PO 10/02/17 19:45 (Morphine Inj) 2 mg Q3H PRN IV 10/02/17 20:00 Pharmacy Profile Note 0 ml @ 0 mls/hr UNSCH OTHER 10/02/17 19:45 Piperacillin Sod/ Tazobactam Sod 50 ml @ 100 mls/hr Q6H IV 10/02/17 21:00 10/04/17 08:47 Vancomycin HCl 1250 mg/Sodium Chloride 262.5 ml @ 250 mls/hr Q8H IV 10/04/17 06:00 10/04/17 06:32 ([facility] [place] [facility] Ordered Lab Info) SPECIFIC LAB TO BE ... ONCE ONCE .XX 10/05/17 05:45 10/05/17 05:46 Family History Family history of diabetes Social History Occasional smoking Occasional alcohol Denies illicit drugs Physical Exam Vital Signs Vital Signs Date Time Temp Pulse Resp B/P (MAP) Pulse Ox O2 Delivery O2 Flow Rate FiO2 10/04/17 08:00 97.9 66 20 130/80 (97) 98 10/04/17 00:00 97.3 57 20 140/88 (105) 99 10/03/17 20:00 97.6 65 20 131/75 (93) 99 10/03/17 16:00 97.9 62 17 129/65 (86) 99 10/03/17 12:00 97.9 66 18 124/64 (84) 99 Physical Exam GENERAL: Patient is a well-nourished, well-developed male, awake and alert, not in respiratory distress. SKIN: Cool and dry. No generalized rash. Has tattoo. HEAD: Atraumatic. Normocephalic. No temporal wasting, or tenderness. EYES: [place] conjunctiva. No petechia or hemorrhage. Pupils equal, round and reactive to light. Extraocular movements full and intact. No scleral icterus. No injection or drainage. EARS, NOSE AND THROAT: Nose without bleeding or purulent nasal discharge. Lower lip is markedly swollen, min induration at midline, has crusted lesion under the lower lip in midline and has a small area on inner lower lip where I and D was done. Mucous membranes pink and moist. NECK: Trachea midline. Supple and not tender, no meningeal signs. Has some small cervical LN, min tenderness CARDIOVASCULAR: Regular rate and rhythm. No murmurs, rubs or gallops heard RESPIRATORY: Clear to auscultation. Breath sounds equal bilaterally. No rales , wheezing or rhonchi ABDOMEN: Soft, non-tender, nondistended. Bowel sounds present and normoactive. No guarding. No rebound. No organomegaly. EXTREMITIES: No clubbing, cyanosis, or edema.No joint effusion, has good ROM. No calf tenderness. Well perfused and warm. NEUROLOGICAL: Awake and alert. Cranial nerves grossly intact. Motor grossly within normal limits. PSYCHIATRIC: Normal affect, calm and cooperative. LINE: No evidence of infection Laboratory Laboratory Tests Test 10/04/17 00:00 10/04/17 06:13 Vancomycin Level Trough 11.7 Creatinine 0.82 Estimat Glomerular Filtration Rate 138 Date/Time Source Procedure Growth Status 10/02/17 16:55 Blood Peripheral Aerobic Blood Culture - Preliminary NO GROWTH IN 1 DAY Resulted 10/02/17 16:55 Blood Peripheral Anaerobic Blood Culture - Preliminary NO GROWTH IN 1 DAY Resulted 10/02/17 16:40 Wound Face Gram Stain - Final Resulted 10/02/17 16:40 Wound Culture - Preliminary S. Aureus Mrsa Resulted Result Diagram: 10/03/17 0500 10/04/17 0613 Imaging Last [address] 10/03/17 0000 Signed Impressions: CONCLUSION: 1. Unremarkable exam. In particular, no abscess involving the lower lip. Assessment and Plan Assessment and Plan IMPRESSION Lower lip abscess with edema - S/P I and D, C/S MRSA - edema improving RECOMMENDATION Clinically better per patient Will switch to Clinda 300 QID x 14 days He can be D/C from ID standpoint Thank you for this consultation Discussed Condition With Explained plan to the patient Jaylene Urias MD Oct 04, 2017 09:41
[2017-10-04] MEDS ORDERED: KETO10 PO (09:58)
[2017-10-04] MEDS ORDERED: CLIN150 PO (09:58)
--- NOTE | 2017-10-04 09:58 | HHI.DCPOC ---
Discharge Care Plan Diagnosis: (1) Lip abscess (2) Sepsis Goals to Promote Your Health * To prevent worsening of your condition and complications * To maintain your health at the optimal level Directions to Meet Your Goals Take your medications as prescribed Follow your dietary instruction Follow activity as directed Keep your appointments as scheduled Take your immunizations and boosters as scheduled If your symptoms worsen call your PCP, if no PCP go to Urgent Care Center or Emergency Room Smoking is Dangerous to Your Health. Avoid second hand smoke Call the 24-hour hour crisis hotline for domestic abuse at Gopi Martins MD Oct 04, 2017 09:58
--- NOTE | 2017-10-04 10:08 | HHI.DS ---
Discharge Summary Admission Date October 02, 2017 at 19:21 Discharge Date: Oct 04, 2017 Admitting Diagnosis Sepsis secondary to lip abscess (1) Sepsis ICD Code: A41.9 - Sepsis, unspecified organism Diagnosis: Principal Status: Resolved (2) Lip abscess ICD Code: K13.0 - Diseases of lips Diagnosis: Principal Status: Acute Procedures Incision and drainage of abscess. Brief History - From Admission 27-year-old male with no significant past medical history presents the emergency department for the evaluation of a swollen lower lip. The patient reports that he thinks he was bit by a spider approximately 4 days ago. He states that the swelling began at that time and has continued to worsen. He was seen in the emergency department on 527 and 528 for the same symptoms. He was started on Bactrim on 09/29 with which he was compliant and despite this his lip swelling continued to worsen. Yesterday the area opened up and started draining foul-smelling purulent material. The patient endorses fatigue. Denies any fever/chills. No chest pain or shortness of breath. No abdominal pain. No nausea/vomiting/diarrhea. No lateralizing signs/symptoms. CBC/BMP: 10/03/17 0500 10/04/17 0613 Significant Findings Laboratory Tests Test 10/02/17 16:00 10/02/17 16:40 10/03/17 05:00 10/04/17 00:00 White Blood Count 13.7 TH/MM3 (4.0-11.0) Red Blood Count 6.40 MIL/MM3 (4.50-5.90) Mean Corpuscular Volume 79.2 FL (80.0-100.0) Mean Corpuscular Hemoglobin 26.3 PG (27.0-34.0) 26.7 PG (27.0-34.0) Neutrophils (%) (Auto) 74.7 % (16.0-70.0) Monocytes (%) (Auto) 9.6 % (0.0-8.0) 12.3 % (0.0-8.0) Neutrophils # (Auto) 10.2 TH/MM3 (1.8-7.7) Monocytes # (Auto) 1.3 TH/MM3 (0-0.9) Calcium Level 8.2 MG/DL (8.5-10.1) Vancomycin Level Trough 11.7 MCG/ML (5.0-10.0) Test 10/04/17 06:13 Imaging Last Impressions Maxillofacial CT 10/03/17 0000 Signed Impressions: CONCLUSION: 1. Unremarkable exam. In particular, no abscess involving the lower lip. PE at Discharge AAOx3 Swollen loer lip, no drainage observed. Clear lungs BL Abdomen soft, nt no edema in extremities Pt Condition on Discharge: Good Discharge Disposition: Discharge Home Discharge Time: <= 30 minutes Discharge Instructions DIET: Follow Instructions for: As Tolerated, No Restrictions Activities you can perform: Regular-No Restrictions Follow up Referrals: PCP Follow-up - 2 Weeks New Medications: Clindamycin (Cleocin) 150 Mg Cap 300 MG PO Q6HR for Infection, #56 CAP Gopi Martins MD Oct 04, 2017 10:08
[2017-10-04 12:00] VITALS: BP 129/79; PULSE 75; RESP 20; TEMP 97.1; O2SAT 100
[2017-10-04] MEDS ORDERED: CLINDAMYCIN 150 MG CAP PO SCH (12:00)
--- NOTE | 2017-10-04 14:59 | PD.PN.STU ---
Subjective Remarks 27 y M being followed for abscess on lower lip post I&D in the ER He is feeling better and pain is improved. He believes swelling has gone down and he has no pain. Denies fever, chills, headaches. Objective Vitals Vital Signs Date Time Temp Pulse Resp B/P (MAP) Pulse Ox O2 Delivery O2 Flow Rate FiO2 10/04/17 12:00 97.1 75 20 129/79 (96) 100 10/04/17 08:00 97.9 66 20 130/80 (97) 98 10/04/17 00:00 97.3 57 20 140/88 (105) 99 10/03/17 20:00 97.6 65 20 131/75 (93) 99 10/03/17 16:00 97.9 62 17 129/65 (86) 99 I/O 10/03/17 10/03/17 10/03/17 10/04/17 10/04/17 10/04/17 07:00 15:00 23:00 07:00 15:00 23:00 Intake Total 1440 ml 2570 ml 1350 ml 300 ml Output Total 0 ml Balance 1440 ml 2570 ml 1350 ml 300 ml Intake Oral 240 ml 240 ml IV Total 1200 ml 2330 ml 1350 ml 300 ml Output Urine Total 0 ml Stool Total 0 ml # Voids 0 4 7 # Bowel Movements 0 0 Result Diagram: 10/03/17 0500 10/04/17 0613 Other Results Vital Signs, 24 Hour Date Time Temp Pulse Resp B/P (MAP) Pulse Ox O2 Delivery O2 Flow Rate FiO2 10/04/17 12:00 97.1 75 20 129/79 (96) 100 10/04/17 08:00 97.9 66 20 130/80 (97) 98 10/04/17 00:00 97.3 57 20 140/88 (105) 99 10/03/17 20:00 97.6 65 20 131/75 (93) 99 10/03/17 16:00 97.9 62 17 129/65 (86) 99 Allergies Coded Allergies No Known Allergies (Unverified Adverse Reaction, Unknown, 10/02/17) Intake/Outtake 10/04/17 10/04/17 11:00 23:00 Intake Total 1650 ml Balance 1650 ml Active Scripts Active Cleocin (Clindamycin HCl) 150 Mg Cap 300 Mg PO Q6HR Objective Remarks HEENT: normocephalic. Lower Lip on left is edematous. no flatulence. Medications and IVs Current Medications Medications (Trade) Dose Ordered Sig/Leah Route Start Time Stop Time Status Last Admin Sodium Chloride 1,000 ml @ 100 mls/hr Q10H IV 10/02/17 20:00 10/04/17 04:26 (NS Flush) 2 ml UNSCH PRN IV FLUSH 10/02/17 19:45 (NS Flush) 2 ml BID IV FLUSH 10/02/17 21:00 10/02/17 22:41 (Tylenol) 650 mg Q4H PRN PO 10/02/17 19:45 (Narcan Inj) 0.4 mg UNSCH PRN IV PUSH 10/02/17 19:45 (Milk Of Magnesia Liq) 30 ml Q12H PRN PO 10/02/17 19:45 (Senokot) 17.2 mg Q12H PRN PO 10/02/17 19:45 (Dulcolax Supp) 10 mg DAILY PRN RECTAL 10/02/17 19:45 (Lactulose Liq) 30 ml DAILY PRN PO 10/02/17 19:45 ([place] 5-325 Mg) 1 tab Q4H PRN PO 10/02/17 19:45 (Morphine Inj) 2 mg Q3H PRN IV 10/02/17 20:00 Pharmacy Profile Note 0 ml @ 0 mls/hr UNSCH OTHER 10/02/17 19:45 Vancomycin HCl 1250 mg/Sodium Chloride 262.5 ml @ 250 mls/hr Q8H IV 10/04/17 06:00 10/04/17 06:32 ([facility] [place] [facility] Ordered Lab Info) SPECIFIC LAB TO BE ... ONCE ONCE .XX 10/05/17 05:45 10/05/17 05:46 (Cleocin) 300 mg Q6HR PO 10/04/17 12:00 10/18/17 11:59 10/04/17 11:51 A/P Assessment and Plan 27 y Male with lip infection 1. MRSA infection on culture of lip WBC trending down receiving IV vanc. Per ID d/c vanc and use oral clinda Can be discharged on oral clinda QID 14 days Daren Dang M3 Oct 04, 2017 14:59
[2017-10-05] MEDS ORDERED: PHARMACY ORDERED LAB ONE (05:45)
== END 2017-10-04 14:45 | disposition home or self-care (01) | DRG 872 ==
LOC: NEPD 15:14 → NEDA 19:21 → N07B 20:18
PROVIDERS: ADMIT Hospitalist; ATTEND Hospitalist
PROC: 0C913ZZ Drainage of Lower Lip, Percutaneous Approach (ICD-10-PCS; principal; 2017-10-02)
DX: A41.9 Sepsis, unspecified organism (principal); K13.0 Diseases of lips; L08.89 Other specified local infections of the skin and subcutaneous tissue; B95.62 Methicillin resistant Staphylococcus aureus infection as the cause of diseases classified elsewhere; Z72.0 Tobacco use
CPT/HCPCS: 10060; 70487; 80048; 80202; 82565; 83605; 85025; 86403; 87040; 87070; 87147; 87186; 87205; 96365; 96366; J2543; J3370; J7030; J7050; Q9967